=== PATIENT | male | born 1995 | race Two or more races ===

== ENCOUNTER 2020-11-14 19:58 | Emergency (ER) | payer MEDICAID, OTHER ==
[~2020-11-14] VITALS: Ht 177.8 cm; Wt 140.6 kg
[2020-11-14 23:58] VITALS: BP 135/100
[2020-11-15] MEDS ORDERED: KETOROLAC TROMETH 60MG/2ML VIAL IM ONE (00:30)
[2020-11-15] MEDS ORDERED: methylPREDNISolone SOD SUCC 125 MG/2 ML VL IM ONE (00:30)
== END 2020-11-15 01:50 | disposition home or self-care (01) ==
LOC: ER 19:59
DX: S52.121A Displaced fracture of head of right radius, initial encounter for closed fracture (principal); E66.9 Obesity, unspecified; Z68.41 Body mass index [BMI] 40.0-44.9, adult; W51.XXXA Accidental striking against or bumped into by another person, initial encounter; Y93.67 Activity, basketball; Y92.89 Other specified places as the place of occurrence of the external cause; Y99.8 Other external cause status
CPT/HCPCS: 29125; 73080; 96372; 99284; J1885; J2930